=== PATIENT | female | born 1975 | race Hispanic/Latino ===

== ENCOUNTER 2017-03-14 09:49 | Emergency (ER) | payer SELFPAY ==
[~2017-03-14] VITALS: Ht 160 cm; Wt 109.0 kg
[~2017-03-14 09:49] MED LIST: ATIVAN0.5 MG PO; CARBAMAZEPIN100 M1 PO; CARBAMAZEPINE300 MG PO; DOXYCYCL HYC100 MG PO; FLONASE NASAL50 MCG; MIRALAX3350 N1 PO; NAPROSYN500 MG PO; NO HOME MEDS; PAROXETINE HCL10 MG PO; PAXIL30 MG PO; PAXIL40 MG PO; TORADOL PO; ULTRAM50 MG PO; ZITHROMAX500 MG PO
[2017-03-14 11:33] LABS: HEMATOCRIT 39.4 % (37.0-47.0); HEMOGLOBIN 12.9 g/dl (12.0-16.0); IMMATURE GRANULOCYTES 0.3 % (0.0-1.0); MEAN CELL VOLUME 95.6 fL CALC (80.0-100.0); MEAN CORPUSCULAR HGB 31.3 pG CALC (26.0-32.0); MEAN CORPUSCULAR HGB CONC 32.7 g/L CALC (32.0-36.0); NEUT# 5.08 thou/uL (2.00-7.15); RED BLOOD COUNT 4.12 mill/uL (4.20-5.60)
[2017-03-14 11:37] LABS: ALBUMIN 4.3 g/dL (3.2-5.0); ALKALINE PHOSPHATASE 134 u/l (38-126); ANION GAP 16 (6-22 (CALC)); BILIRUBIN, TOTAL 0.4 mg/dL (0.0-1.4); BUN 7 mg/dL (7-17); BUN/CREATININE RATIO 15 (12-20 (CALC)); CALCIUM 9.1 mg/dL (8.4-10.2); CARBON DIOXIDE 21 mmol/l (22-30); CHLORIDE 105 mmol/l (95-108); CREATININE 0.5 mg/dL (0.5-1.0); GFR > 60 ML/MIN (>=60 (CALC)); GFR FOR AFR.AMER. > 60 ML/MIN (>=60 (CALC)); GLUCOSE 112 mg/dL (65-105); POTASSIUM 4.5 mmol/l (3.5-5.1); SGOT/AST 161 u/l (14-36); SGPT/ALT 136 u/l (9-52); SODIUM 138 mmol/l (137-146); TOTAL PROTEIN 8.4 g/dL (6.3-8.2)
[2017-03-14 11:49] LABS: MYOGLOBIN 12 ng/mL (0 - 62)
[2017-03-14 12:29] VITALS: BP 164/66
== END 2017-03-14 12:15 | disposition home or self-care (01) | DRG 866 ==
LOC: ED 09:49
PROVIDERS: Emergency Medicine
DX: B34.9 Viral infection, unspecified (principal); F41.9 Anxiety disorder, unspecified; R06.02 Shortness of breath

== ENCOUNTER 2018-06-07 08:48 | Emergency (ER) | payer BC ==
[~2018-06-07] VITALS: Ht 160 cm; Wt 90.9 kg
[2018-06-07 10:17] LABS: HEMATOCRIT 37.8 % (37.0-47.0); HEMOGLOBIN 12.4 g/dl (12.0-16.0); IMMATURE GRANULOCYTES 0.4 % (0.0-5.0); MEAN CELL VOLUME 92.9 fL CALC (80.0-100.0); MEAN CORPUSCULAR HGB 30.5 pG CALC (26.0-32.0); MEAN CORPUSCULAR HGB CONC 32.8 g/L CALC (32.0-36.0); NEUT# 5.59 thou/uL (2.00-7.15); RED BLOOD COUNT 4.07 mill/uL (4.20-5.60); RED CELL DISTRI WIDTH 13.1 % (11.5-15.5)
[2018-06-07 10:25] LABS: ANION GAP 13 (6-22 (CALC)); BUN 9 mg/dL (7-17); BUN/CREATININE RATIO 21 (12-20 (CALC)); CARBON DIOXIDE 24 mmol/l (22-30); CHLORIDE 107 mmol/l (95-108); CREATININE 0.4 mg/dL (0.5-1.0); GFR > 60 ML/MIN (>=60 (CALC)); GFR FOR AFR.AMER. > 60 ML/MIN (>=60 (CALC)); POTASSIUM 3.8 mmol/l (3.5-5.1); SODIUM 140 mmol/l (137-146)
[2018-06-07] MEDS ORDERED: ZESTRIL5 M1 PO (11:30)
[2018-06-07 11:55] VITALS: BP 176/84
== END 2018-06-07 11:55 | disposition left against medical advice (07) | DRG 313 ==
LOC: ED 08:48
PROVIDERS: Family Medicine
DX: R07.9 Chest pain, unspecified (principal); I10 Essential (primary) hypertension; F41.9 Anxiety disorder, unspecified; R51 Headache